=== PATIENT | male | born 1995 | race Asian ===

== ENCOUNTER → 2023-01-31 | Outpatient (REF) | payer BC ==
[2023-01-31 19:30] LABS: IRON (FE) 78 UG/DL (65-175); PERCENT SATURATION 19.8 % (19.7-50.0); TOTAL IRON BINDING CAPACITY 393 UG/DL (250-425)
[2023-01-31 19:32] LABS: FERRITIN 307.7 NG/ML (10.5-307.3)
[2023-01-31 19:45] LABS: HEPATITIS B SURFACE ANTIGEN NEGATIVE (NEGATIVE)
[2023-01-31 20:05] LABS: HEPATITIS B CORE ANTIBODY IGM NEGATIVE (NEGATIVE)
[2023-01-31 20:06] LABS: HEPATITIS C VIRUS ABY INDEX 0.1 INDEX (<0.8)
[2023-02-02 18:09] LABS: ANTI-MITOCHONDRIAL ANTIBODY <20.0 Units (0.0-20.0); ANTINUCLEAR ANTIBODIES DIRECT Negative (Negative)
== END ==
LOC: M LAB REF 17:18
PROVIDERS: ATTEND Internal Medicine
DX: R74.01 Elevation of levels of liver transaminase levels (principal)

== ENCOUNTER → 2023-03-08 | Outpatient (CLI) | payer BC | LOC: EDUNIT# 03-02 07:30 → M RAD 07:15 | PROVIDERS: ATTEND Internal Medicine | DX: R74.8 Abnormal levels of other serum enzymes (principal) ==